=== PATIENT | male | born 1975 | race Caucasian/White ===

== ENCOUNTER 2020-08-03 01:46 | Emergency (ER) | payer SELFPAY ==
[~2020-08-03] VITALS: Ht 182.9 cm; Wt 215.5 kg
[2020-08-03 01:52] VITALS: BP 194/85
--- NOTE | 2020-08-03 02:14 | NUR ---
PT STATES THAT HE WAS DX WITH HYPERTENSION X8 YEARS AGO AND HAD A DISAGREEMENT WITH [facility] AND NEVER FOLLOWED UP FOR TREATMENT OR STARTED ANTI HYPERTENSIVE MEDS. PT REPORTS BEING DX WITH INSULIN DEPENDENT DIABETES X3 YEARS AGO AND NEVER FOLLOWED UP AND NEVER STARTED TAKING INSULIN DUE TO ANOTHER DISAGREEMENT WITH [facility].
[2020-08-03 02:17] LABS: HEMATOCRIT 46 % (40-54); MEAN CORPUSCULAR HEMOGLOBIN 27 PG (25-34); MEAN CORPUSCULAR HGB CONC 35 G/DL (32-36); MEAN CORPUSCULAR VOLUME 77 FL (80-99); WHITE BLOOD COUNT 10.6 10^3/uL (4.3-11.0)
[2020-08-03 02:18] LABS: BASOPHILS # (AUTO) 0.1 10^3/uL (0.0-0.1); BASOPHILS % (AUTO) 1 % (0-10); EOSINOPHILS # (AUTO) 0.2 10^3/uL (0.0-0.3); EOSINOPHILS % (AUTO) 2 % (0-10); LYMPHOCYTES # (AUTO) 2.5 X 10^3 (1.0-4.0); LYMPHOCYTES % (AUTO) 23 % (12-44); MEAN PLATELET VOLUME 11.4 FL (7.4-10.4); MONOCYTES # (AUTO) 0.8 X 10^3 (0.0-1.0); MONOCYTES % (AUTO) 7 % (0-12); NEUTROPHILS % (AUTO) 66 % (42-75); PLATELET COUNT 257 10^3/uL (130-400)
[2020-08-03 02:35] LABS: BUN/CREATININE RATIO 20; CARBON DIOXIDE 24 MMOL/L (21-32); CHLORIDE 93 MMOL/L (98-107); CREATININE SERUM 0.51 MG/DL (0.60-1.30); GFR ESTIMATED > 60; SODIUM 130 MMOL/L (135-145)
[2020-08-03 02:36] LABS: ALKALINE PHOSPHATASE 185 U/L (40-136); BILIRUBIN,TOTAL 0.3 MG/DL (0.1-1.0); CALCIUM 10.3 MG/DL (8.5-10.1); GLUCOSE 442 MG/DL (70-105)
[2020-08-03 02:37] LABS: ALANINE AMINOTRANSFERASE 46 U/L (0-55); ALBUMIN 4.1 GM/DL (3.2-4.5); TOTAL PROTEIN 7.3 GM/DL (6.4-8.2)
[2020-08-03] MEDS ORDERED: cloNIDine 0.2 MG (CATAPRES) TAB ONE (02:47)
--- NOTE | 2020-08-03 02:47 | NUR ---
PT ADVISED IT WOULD BE BEST IF HE DID NOT LEAVE AND WAS TRANSPORTED VIA EMS TO [facility]. PT STATES THAT HE DOES NOT HAVE INSURANCE AND THAT HE CANNOT AFFORD TO PAY FOR THE EMS TRANSPORT BILL. PT INFORMED THAT THE RISK OF LEAVING COULD RESULT IN AND PT STATES AN UNDERSTANDING AND THAT HE WILL SIGN AN AMA FORM STATING SUCH.
--- NOTE | 2020-08-03 02:55 | ED General ---
General Chief Complaint: Chest Pain Stated Complaint: CHEST PAIN Nursing Triage Note: PT AMBULATE TO ROOM FS06 WITH C/O CHEST PAIN, PAIN BETWEEN SHOULDERS, AND LEFT ARM NUMBNESS STARTING AT 2030 YESTERDAY. PT REPORTS TAKING X4 BABY ASA AT 2230 Nursing Sepsis Screen: No Definite Risk History of Present Illness Date Seen by Provider: Aug 03, 2020 Time Seen by Provider: 02:00 Initial Comments Patient is a 45-year-old male with history of uncontrolled/untreated insulin- dependent diabetes and hypertension he presents with intermittent chest pain 2 weeks. Patient describes left-sided chest pain radiating between shoulder blades awaking him from sleep proximally 6 hours ago. Pain is continuous described as dull and moderate severity. It is worse with exertion and is not fully relieved with rest. Patient denies nausea vomiting sweats, abdominal pain. Denies leg pain swelling. No history of CAD. Patient is noncompliant with all medications and does not routinely participate in medical care. Timing/Duration: 4-6 Hours Severity: Moderate Modifying Factors: improves with Other Associated Systoms: Other Allergies and Home Medications Allergies Coded Allergies: No Known Allergies (Verified Allergy, Unknown, 08/03/20) Patient Home Medication List Home Medication List Reviewed: Yes Review of Systems Review of Systems Constitutional: see HPI EENTM: see HPI Respiratory: see HPI Cardiovascular: see HPI Gastrointestinal: see HPI Genitourinary: see HPI Musculoskeletal: see HPI Psychiatric/Neurological: See HPI Hematologic/Lymphatic: See HPI Immunological/Allergic: see HPI All Other Systems Reviewed Negative Unless Noted: Yes Past Viwetfg-Jecozf-Heemev Hx Past Med/Social Hx: Reviewed Nursing Past Med/Soc Hx Patient Social History Alcohol Use: Occasionally Uses Recreational Drug Use: No Smoking Status: Never a Smoker Type Used: Smokeless Tobacco 2nd Hand Smoke Exposure: No Recent Foreign Travel: No Contact w/Someone Who Travel: No Recent Infectious Disease Expo: No Recent Hopitalizations: No Physical Abuse: No Sexual Abuse: No Mistreated: No Fear: No Seasonal Allergies Seasonal Allergies: No Past Medical History Surgeries: Yes (L KNEE, ) Orthopedic Respiratory: No Cardiac: Yes Hypertension Neurological: No Genitourinary: No Gastrointestinal: No Musculoskeletal: Yes Arthritis, Gout Endocrine: Yes (PT STATES HAS NOT TAKEN INSULIN IN X3 YEARS) Diabetes, Insulin dep HEENT: No Cancer: No Psychosocial: No Integumentary: No Blood Disorders: No Physical Exam Vital Signs Vital Signs - First Documented 12/28/20 01:52 Temp 37.2 Pulse 75 Resp 17 B/P (MAP) 194/85 (121) O2 Delivery Room Air Capillary Refill : Less Than 3 Seconds Height, Weight, BMI Height: '" Weight: lbs. oz. kg; 64.00 BMI Method: General Appearance: Anxious Eyes: Bilateral Eye Normal Inspection, Bilateral Eye PERRL, Bilateral Eye EOMI HEENT: PERRL/EOMI, Normal ENT Inspection, Pharynx Normal Neck: Full Range of Motion, Non Tender, Supple Respiratory: Lungs Clear Cardiovascular: Regular Rate, Rhythm, No Edema Gastrointestinal: Non Tender, Soft Back: Normal Inspection, No CVA Tenderness Extremity: Non Tender, No Calf Tenderness Neurologic/Psychiatric: Alert, Oriented x3 Focused Exam Sepsis Stage: Ruled Out Progress/Results/Core Measures Suspected Sepsis Recent Fever Within 48 Hours: No Infection Criteria Present: None New/Unexplained Altered Menta: No Sepsis Screen: No Definite Risk SIRS Temperature: Pulse: 75 Respiratory Rate: 17 Laboratory Tests 08/03/20 02:00: White Blood Count 10.6 Blood Pressure 194 /85 Mean: 121 Laboratory Tests 08/03/20 02:00: Creatinine 0.51L, Platelet Count 257, Total Bilirubin 0.3 Results/Orders Lab Results Laboratory Tests Test 08/03/20 02:00 Range/Units White Blood Count 10.6 4.3-11.0 10^3/uL Red Blood Count 6.00 H 4.35-5.85 10^6/uL Hemoglobin 16.0 13.3-17.7 G/DL Hematocrit 46 40-54 % Mean Corpuscular Volume 77 L 80-99 FL Mean Corpuscular Hemoglobin 27 25-34 PG Mean Corpuscular Hemoglobin Concent 35 32-36 G/DL Red Cell Distribution Width 12.3 10.0-14.5 % Platelet Count 257 130-400 10^3/uL Mean Platelet Volume 11.4 H 7.4-10.4 FL Immature Granulocyte % (Auto) 1 % Neutrophils (%) (Auto) 66 42-75 % Lymphocytes (%) (Auto) 23 12-44 % Monocytes (%) (Auto) 7 0-12 % Eosinophils (%) (Auto) 2 0-10 % Basophils (%) (Auto) 1 0-10 % Neutrophils # (Auto) 7.0 1.8-7.8 X 10^3 Lymphocytes # (Auto) 2.5 1.0-4.0 X 10^3 Monocytes # (Auto) 0.8 0.0-1.0 X 10^3 Eosinophils # (Auto) 0.2 0.0-0.3 10^3/uL Basophils # (Auto) 0.1 0.0-0.1 10^3/uL Immature Granulocyte # (Auto) 0.1 0.0-0.1 10^3/uL Sodium Level 130 L 135-145 MMOL/L Potassium Level 4.0 3.6-5.0 MMOL/L Chloride Level 93 L 98-107 MMOL/L Carbon Dioxide Level 24 21-32 MMOL/L Anion Gap 13 5-14 MMOL/L Blood Urea Nitrogen 10 7-18 MG/DL Creatinine 0.51 L 0.60-1.30 MG/DL Estimat Glomerular Filtration Rate > 60 BUN/Creatinine Ratio 20 Glucose Level 442 *H 70-105 MG/DL Calcium Level 10.3 H 8.5-10.1 MG/DL Corrected Calcium 10.2 H 8.5-10.1 MG/DL Total Bilirubin 0.3 0.1-1.0 MG/DL Aspartate Amino Transf (AST/SGOT) 51 H 5-34 U/L Alanine Aminotransferase (ALT/SGPT) 46 0-55 U/L Alkaline Phosphatase 185 H 40-136 U/L Troponin I 1.71 *H <0.30 NG/ML Total Protein 7.3 6.4-8.2 GM/DL Albumin 4.1 3.2-4.5 GM/DL My Orders Orders - CRISTA MORENO DO Cbc With Automated Diff (08/03/20 02:03) Comprehensive Metabolic Panel (08/03/20 02:03) Troponin I Fs (08/03/20 02:03) Chest 1 View Ap/Pa Only (08/03/20 02:03) Clonidine Tablet (Catapres Tablet) (08/03/20 03:00) Vital Signs/I&O 08/03/20 08/03/20 01:52 02:00 Temp 37.2 Pulse 75 Resp 17 B/P (MAP) 194/85 (121) O2 Delivery Room Air Room Air Capillary Refill : Less Than 3 Seconds Blood Pressure Mean: 121 Departure Communication (Admissions) EKG: Normal sinus rhythm, rate 79, possible elevation in leads V1 through V2 and lead 3, old Q waves present and inferior and anterior leads. Patient's blood pressure elevated, troponin positive. Presentation consistent with acute coronary syndrome. Transfer to clear the nearest facility with cardiology/Un[employer] Apprentice capability recommended. Patient declines transportation and prefers to drive despite being told he is having heart attack with ongoing chest pain as a risk of and disability. Patient states he does not wish to be billed for an ambulance ride. Blood pressure treated. Aspirin taken prior to ED arrival. Patient discharged from the ED AGAINST MEDICAL ADVICE per his request. Duty care physician notified had [facility] of patient's potential arrival. Impression Primary Impression: Acute myocardial infarction Disposition: AGAINST MEDICAL ADVICE Condition: Critical Departure-Patient Inst. Referrals: NO,LOCAL PHYSICIAN (PCP/Family) Primary Care Physician Add. Discharge Instructions: Call 911 and requests transfer to closest ER facility with cardiology coverage. All discharge instructions reviewed with patient and/or family. Voiced understanding. CRISTA MORENO DO Aug 03, 2020 02:55
[2020-08-03] MEDS ORDERED: cloNIDine 0.1 MG (CATAPRES) TAB PO ONE (03:00)
--- NOTE | 2020-08-03 05:07 | Diagnostic Imaging Report ---
INDICATION: Chest pain. FINDINGS: The heart size, mediastinal configuration, and pulmonary vascularity are within normal limits. There is no pleural effusion, pneumothorax, or pneumonia. The osseous structures are unremarkable. IMPRESSION: No acute cardiopulmonary abnormality. Dictated by: Dictated on workstation # [id number]
[2020-08-03] MEDS ORDERED: ACET325T38 PO (14:19)
[2020-08-04] MEDS ORDERED: ASPI-1238 PO (08:49)
[2020-08-04] MEDS ORDERED: CLOP75TA28 PO (08:49)
[2020-08-04] MEDS ORDERED: INSU100I44 SQ (08:49)
[2020-08-04] MEDS ORDERED: METF-397 PO (08:49)
[2020-08-04] MEDS ORDERED: METO50TA7 PO (08:49)
[2020-08-04] MEDS ORDERED: GLIP5TAB13 PO (08:49)
[2020-08-04] MEDS ORDERED: ATOR40TA PO (08:49)
== END 2020-08-03 02:47 | disposition left against medical advice (07) ==
LOC: EDUNIT# 01:46 → ER FS 01:51
DX: I21.9 Acute myocardial infarction, unspecified (principal); F41.9 Anxiety disorder, unspecified
CPT/HCPCS: 36415; 71045; 80053; 84484; 85025

== ENCOUNTER 2020-08-03 03:47 | Inpatient (IN) | payer SELFPAY ==
[~2020-08-03] VITALS: Ht 182.8 cm; Wt 180.3 kg
[2020-08-03] MEDS ORDERED: NITROGLYCERIN 0.4 MG SL TABS BTL 25'S SL ONE (04:00)
[2020-08-03] MEDS ORDERED: ASPIRIN 81 MG CHEW (CHILDREN'S ASA) ONE (04:00)
--- NOTE | 2020-08-03 04:09 | ED Chest Pain ---
General Chief Complaint: Chest Pain Stated Complaint: L ARM NUMBNESS, FACE NUMBLESSES, CHEST PAIN Source: patient Exam Limitations: no limitations History of Present Illness Date Seen by Provider: Aug 03, 2020 Time Seen by Provider: 04:00 Initial Comments Patient is a 45-year-old male who presents to the emergency department today wit h a chief complaint of substernal chest pain, "like an elephant on my chest" radiating between his shoulder blades into his left arm and up into his left jaw onset around 830 or 9 PM this evening. Patient had onset of nausea associated with the symptoms. Denies any diaphoresis or shortness of breath. Patient states he was at rest when the symptoms started. He does state that he has had off-and-on chest pain for the last couple of weeks but he thought it was due to "stress". Patient has a long history of uncontrolled diabetes and hypertension and states he is not seen a doctor in probably 4 years. Patient presented earlier this evening to [facility] [place] was diagnosed with a "NSTEMI" and signed out AMA and drove himself down here because he did not want to pay for an ambulance transfer. Patient continues to complain of pain at this time rating it about a "4" on a scale of 1-10. Patient denies any recent illnesses such as fevers, chills, cough. No GI or symptoms. All other review of systems reviewed and negative except as stated above. Timing/Duration: 4-6 hours Severity/Quality: severe Location: substernal Radiation: jaw, arms, neck, back Activities at Onset: none ASA po SHOULDER PUNCHER: Yes NTG SL SHOULDER PUNCHER: No Allergies and Home Medications Allergies Coded Allergies: No Known Allergies (Verified Allergy, Unknown, 08/03/20) Patient Home Medication List Home Medication List Reviewed: Yes Review of Systems Review of Systems Constitutional: see HPI EENTM: No Symptoms Reported Respiratory: No Symptoms Reported Cardiovascular: Chest Pain Gastrointestinal: Nausea Genitourinary: No Symptoms Reported Musculoskeletal: no symptoms reported Skin: no symptoms reported Past Rpkgmrv-Erimsv-Mjzpuo Hx Patient Social History Type Used: Smokeless Tobacco 2nd Hand Smoke Exposure: No Recent Foreign Travel: No Contact w/Someone Who Travel: No Recent Hopitalizations: No Seasonal Allergies Seasonal Allergies: No Past Medical History Surgeries: Yes (L KNEE, ) Orthopedic Respiratory: No Cardiac: Yes Hypertension Neurological: No Genitourinary: No Gastrointestinal: No Musculoskeletal: Yes Arthritis, Gout Endocrine: Yes (PT STATES HAS NOT TAKEN INSULIN IN X3 YEARS) Diabetes, Insulin dep HEENT: No Cancer: No Psychosocial: No Integumentary: No Blood Disorders: No Physical Exam Vital Signs Vital Signs - First Documented 08/03/20 03:50 Temp 36.0 Pulse 82 Resp 18 B/P (MAP) 194/118 (143) O2 Delivery Room Air Capillary Refill : Less Than 3 Seconds Height, Weight, BMI Height: '" Weight: lbs. oz. kg; 64.00 BMI Method: General Appearance: No Apparent Distress, WD/WN, Obese HEENT: PERRL/EOMI Neck: Full Range of Motion Respiratory: Lungs Clear, Normal Breath Sounds, No Accessory Muscle Use, No Respiratory Distress Cardiovascular: Regular Rate, Rhythm Gastrointestinal: Normal Bowel Sounds, Non Tender, Soft, Other (Morbid obesity) Extremity: Normal Capillary Refill, Normal Range of Motion, No Pedal Edema Neurologic/Psychiatric: Alert, Oriented x3, No Motor/Sensory Deficits, Normal Mood/Affect Skin: Normal Color, Warm/Dry Progress/Results/Core Measures Results/Orders Lab Results Laboratory Tests Test 08/03/20 03:55 Range/Units White Blood Count 9.9 4.3-11.0 10^3/uL Red Blood Count 6.43 H 4.30-5.52 10^6/uL Hemoglobin 17.1 13.3-17.7 g/dL Hematocrit 50 40-54 % Mean Corpuscular Volume 78 L 80-99 fL Mean Corpuscular Hemoglobin 27 25-34 pg Mean Corpuscular Hemoglobin Concent 34 32-36 g/dL Red Cell Distribution Width 12.2 10.0-14.5 % Platelet Count 195 130-400 10^3/uL Mean Platelet Volume 11.9 9.0-12.2 fL Immature Granulocyte % (Auto) 0 % Neutrophils (%) (Auto) 68 42-75 % Lymphocytes (%) (Auto) 23 12-44 % Monocytes (%) (Auto) 7 0-12 % Eosinophils (%) (Auto) 1 0-10 % Basophils (%) (Auto) 1 0-10 % Neutrophils # (Auto) 6.7 1.8-7.8 10^3/uL Lymphocytes # (Auto) 2.3 1.0-4.0 10^3/uL Monocytes # (Auto) 0.7 0.0-1.0 10^3/uL Eosinophils # (Auto) 0.1 0.0-0.3 10^3/uL Basophils # (Auto) 0.1 0.0-0.1 10^3/uL Immature Granulocyte # (Auto) 0.0 0.0-0.1 10^3/uL Sodium Level 133 L 135-145 MMOL/L Potassium Level 4.1 3.6-5.0 MMOL/L Chloride Level 96 L 98-107 MMOL/L Carbon Dioxide Level 23 21-32 MMOL/L Anion Gap 14 5-14 MMOL/L Blood Urea Nitrogen 10 7-18 MG/DL Creatinine 0.91 0.60-1.30 MG/DL Estimat Glomerular Filtration Rate > 60 BUN/Creatinine Ratio 11 Glucose Level 423 *H 70-105 MG/DL Calcium Level 10.5 H 8.5-10.1 MG/DL Total Creatine Kinase 597 H 30-200 U/L Creatine Kinase MB 33.8 *H <6.6 NG/ML Troponin I 2.113 *H <0.028 NG/ML My Orders Orders - YOUNG ANGUIANO MD Nitroglycerin 0.4 Mg Btl 25's (Nitrostat (08/03/20 04:00) Aspirin Chewable Tablet (Baby Aspirin Ch (08/03/20 04:00) Ed Iv/Invasive Line Start (08/03/20 04:09) Cbc With Automated Diff (08/03/20 04:09) Basic Metabolic Panel (08/03/20 04:09) Creatine Kinase (08/03/20 04:09) Creatine Kinase Mb (08/03/20 04:09) Troponin I (08/03/20 04:09) Ekg Tracing (08/03/20 04:09) Aspirin Chewable Tablet (Baby Aspirin Ch (08/03/20 09:00) Nitroglycerin 0.4 Mg Btl 25's (Nitrostat (08/03/20 04:15) Insulin (Regular) Human (Novolin R (Per (08/03/20 04:15) Clopidogrel Tablet (Plavix Tablet) (08/03/20 05:00) Metoprolol Succinate (Xl) Tab (Toprol Xl (08/03/20 05:00) Fentanyl Injection (Sublimaze Injection (08/03/20 05:00) Medications Given in ED Current Medications Medications Dose Ordered Sig/Hyun Route Start Time Stop Time Status Last Admin Dose Admin Aspirin 81 mg STK-MED ONCE .ROUTE 08/03/20 04:00 08/03/20 04:04 DC 08/03/20 04:05 324 MG Insulin Human Regular 10 unit ONCE ONCE SC 08/03/20 04:15 08/03/20 04:16 DC 08/03/20 04:20 10 UNIT Nitroglycerin 0.4 mg NEEDED PRN SL 08/03/20 04:15 08/03/20 04:20 0.4 MG Nitroglycerin 0.4 mg STK-MED ONCE SL 08/03/20 04:00 08/03/20 04:04 DC 08/03/20 04:05 0.4 MG Vital Signs/I&O 08/03/20 08/03/20 03:50 03:50 Temp 36.0 Pulse 82 Resp 18 B/P (MAP) 194/118 (143) O2 Delivery Room Air Room Air Progress Progress Note : Time: 04:13 Progress Note 45-year-old male presents to the emergency room with an NSTEMI. Patient has a long history of uncontrolled diabetes and hypertension. Previously seen this e vening with a troponin of 1.71. Blood sugar greater than 400. Patient is treated here in the emergency department this evening with 324 mg of aspirin as well as sublingual nitroglycerin. Patient is also given 10 units of regular insulin subcu for control of his blood sugar. Patient will be admitted to the hospitalist service with an NSTEMI with cardiology consult. [id number] Whitley, recommends Plavix 300 mg, metoprolol XL 50 mg will admit to the ICU Also discussed with Dr. Valdez for admission Initial ECG Impression Date: Aug 03, 2020 Initial ECG Impression Time: 03:51 Initial ECG Rate: 72 Initial ECG Rhythm: Normal Sinus Initial ECG Intervals: Normal Initial ECG Impression: Nonspecific Changes Comment Poor R wave progression over the precordium, nonspecific ST-T wave changes inferiorly Departure Communication (Admissions) Time/Spoke to Admitting Phy: 04:[address] Valdez accepts the patient for admission to the ICU Time/Spoke to Consulting Phy: 04:48 Discussed with ; Plavix load and metoprolol Impression Primary Impression: NSTEMI (non-ST elevated myocardial infarction) Additional Impression: Hyperglycemia due to diabetes mellitus Disposition: ADMITTED INPATIENT Condition: Stable Admissions Decision to Admit Reason: Admit from ER (General) Decision to Admit/Date: Aug 03, 2020 Time/Decision to Admit Time: 04:59 Departure-Patient Inst. Referrals: NO,LOCAL PHYSICIAN (PCP/Family) Primary Care Physician YOUNG ANGUIANO MD Aug 03, 2020 04:09
[2020-08-03] MEDS ORDERED: inSUlin (REGULAR) HUMAN 1 UNIT/0.01 ML (CHARGE PER UNIT) SC ONE (04:15)
[2020-08-03] MEDS ORDERED: NITROGLYCERIN 0.4 MG SL TABS BTL 25'S SL PRN (04:15)
[2020-08-03 04:16] LABS: BASOPHILS # (AUTO) 0.1 10^3/uL (0.0-0.1); BASOPHILS % (AUTO) 1 % (0-10); EOSINOPHILS # (AUTO) 0.1 10^3/uL (0.0-0.3); EOSINOPHILS % (AUTO) 1 % (0-10); HEMATOCRIT 50 % (40-54); HEMOGLOBIN 17.1 g/dL (13.3-17.7); LYMPHOCYTES # (AUTO) 2.3 10^3/uL (1.0-4.0); LYMPHOCYTES % (AUTO) 23 % (12-44); MEAN CORPUSCULAR HEMOGLOBIN 27 pg (25-34); MEAN CORPUSCULAR HGB CONC 34 g/dL (32-36); MEAN CORPUSCULAR VOLUME 78 fL (80-99); MEAN PLATELET VOLUME 11.9 fL (9.0-12.2); MONOCYTES # (AUTO) 0.7 10^3/uL (0.0-1.0); MONOCYTES % (AUTO) 7 % (0-12); NEUTROPHILS # (AUTO) 6.7 10^3/uL (1.8-7.8); NEUTROPHILS % (AUTO) 68 % (42-75); PLATELET COUNT 195 10^3/uL (130-400); WHITE BLOOD COUNT 9.9 10^3/uL (4.3-11.0)
--- NOTE | 2020-08-03 04:20 | NUR ---
SERUM GLUCOSE 442 MG/DL AT 0200 FROM LABS DRAWN AT [facility] ER, NO TX GIVEN. 10 UNITS REGULAR INSULIN GIVEN SQ PER DR. ANGUIANO ORDERS AT THIS TIME.
--- NOTE | 2020-08-03 04:25 | NUR ---
0420- 2ND SL NITRO GIVEN. 042- BP 122/70, NO DECREASE TO LEFT SIDED CHEST PAIN. RELIEF IN UPPER BACK PAIN, FEELING RETURNING TO LEFT JAW, LEFT ARM REMAINS "NUMB". DR. ANGUIANO NOTIFIED AND VERBAL ORDERS TO HOLD 3RD DOSE SL NITRO AT THIS TIME R/T DECREASE IN BP.
[2020-08-03 04:30] LABS: BUN/CREATININE RATIO 11; CALCIUM 10.5 MG/DL (8.5-10.1); CARBON DIOXIDE 23 MMOL/L (21-32); CHLORIDE 96 MMOL/L (98-107); CREATINE KINASE 597 U/L (30-200); CREATININE SERUM 0.91 MG/DL (0.60-1.30); GFR ESTIMATED > 60; POTASSIUM 4.1 MMOL/L (3.6-5.0); SODIUM 133 MMOL/L (135-145)
[2020-08-03 04:33] LABS: GLUCOSE 423 MG/DL (70-105)
[2020-08-03 04:42] LABS: CREATINE KINASE MB 33.8 NG/ML (<6.6)
[2020-08-03] MEDS ORDERED: CLOPIDOGREL 300 MG (PLAVIX) TABLET PO ONE ×2 (05:00→07:32)
[2020-08-03] MEDS ORDERED: fentaNYL INJECTION 100 MCG/2 ML AMP IVP ONE (05:00)
[2020-08-03] MEDS ORDERED: meTOproloL SUCCINATE 50 MG (TOPROL XL) TAB PO SCH (05:00)
--- NOTE | 2020-08-03 05:00 | NUR ---
DR. ANGUIANO AND PT NOTIFIED OF HOLD IN ER UNTIL AFTER 0700 SHIFT CHANGE. PT VERBALIZED UNDERSTANDING AND NO QUESTIONS OR CONCERNS AT THIS TIME.
--- NOTE | 2020-08-03 05:00 | NUR ---
COMIC BOOK DESIGNER NOTIFIED OF DR. MCCLURE'S REQUEST FOR PT TO BE IN ICU. ROOM NUMBER GIVEN, BUT PER MARILEE, COMIC BOOK DESIGNER PT WILL NEED TO REMAIN IN ER UNTIL AFTER SHIFT CHANGE R/T STAFFING/PT ACUITY.
--- NOTE | 2020-08-03 05:05 | NUR ---
RATES CHEST PAIN 2 ON 0-[address] ANGUIANO NOTIFIED[address] VERBAL ORDERS TO HOLD IV FENTANYL AT THIS TIME.
--- NOTE | 2020-08-03 05:58 | NUR ---
PT STATES PAIN STARTING TO RETURN TO MID BACK, RATES PAIN 3 ON 0-[address] ANGUIANO NOTIFIED WHO VERBAL ORDERS TO GIVE FENTANYL 50MCG IV THAT WAS PREVIOUSLY ON HOLD.
[2020-08-03] MEDS ORDERED: NS IV 1000 ML 1,000 ML ONE (06:15)
[2020-08-03] MEDS ORDERED: MIDAZOLAM 5 MG/5 ML (VERSED) VIAL ONE (06:15)
[2020-08-03] MEDS ORDERED: LIDOCAINE 1% INJ 20 ML 20 ML VIAL ONE (06:15)
[2020-08-03] MEDS ORDERED: fentaNYL INJECTION 100 MCG/2 ML AMP ONE ×2 (06:15→09:45)
[2020-08-03] MEDS ORDERED: HEParin (CATH LAB) 2,000 ML IV ONE (06:15)
[2020-08-03] MEDS ORDERED: NITRO DRIP 25000 MCG/D5W 250 ML IV ONE (06:15)
[2020-08-03] MEDS ORDERED: HEParin 1000 UNIT/ML (10ML VIAL) FOR BOLUS ONE (06:15)
[2020-08-03 06:39] VITALS: BP 138/89
--- NOTE | 2020-08-03 06:52 | Consultation-Cardiology ---
HPI-Cardiology Cardiology Consultation: Date of Consultation 08/03/20 Time Seen by a Provider: 06:40 Date of Admission Attending Physician Thalia Whitley MD [facility] Admitting Physician Carmelita,Local Physician Consulting Physician THALIA WHITLEY MD, FACP, [facility] HPI: Chief Complaint: CC: Chest discomfort HPI 45 yo man with multiple cor risk factors who presents with several hours of waxing and waning mid-chest discomfort, varying from mild to moderately severe, pressure like, radiating to L shoulder, associated with some shortness of breath, improved with s/l NTG in ER, never felt before. Chronic, slowly progressive, exertional shortness of breath. No palp or syncope. No swelling Review of Systems-Cardiology Review of Systems Constitutional: malaise, tiredness; No weight loss, No weight gain Eyes: No vision change Ears/Nose/Throat: No ear discharge, No nasal drainage, No recent hearing loss Respiratory: As described under HPI Cardiovascular: As described under HPI Gastrointestinal: No diarrhea, No nausea, No vomiting Genitourinary: No dysuria, No hematuria Musculoskeletal: No back pain, No joint pain Skin: No rash, No ulcerations Psychiatric/Neurological: No seizure, No focal weakness, No syncope Hematologic: No bleeding abnormalities ZSB-Wzgtab-Fnwgvf Hx Patient Social History Alcohol Use: Occasionally Uses Recreational Drug Use: No Type Used: Smokeless Tobacco 2nd Hand Smoke Exposure: No Recent Foreign Travel: No Recent Infectious Disease Expo: No Hospitalization with Isolation: Denies Past Medical History PMH As described under Assessment. Family Medical History Family Medical History: Report fam h/o early CAD Allergies and Home Medications Allergies Coded Allergies: No Known Allergies (Verified Allergy, Unknown, 08/03/20) Patient Home Medication List Home Medication List Reviewed: Yes Physical Exam-Cardiology Physical Exam Vital Signs/I&O 08/03/20 08/03/20 08/03/20 03:50 03:50 06:39 Temp 36.0 36.0 Pulse 82 92 Resp 18 18 B/P (MAP) 194/118 (143) 138/89 (143) Pulse Ox 98 O2 Delivery Room Air Room Air Room Air Capillary Refill : Less Than 3 Seconds Constitutional: AAO x 3, well-developed, well-nourished HEENT: EOMI, hearing is well preserved; No xanthelasmas are seen Neck: carotid pulses are 2 + bilaterally Respiratory: No accessory muscle use; other (good bilat air entry) Cardiovascular: regular rate-rhythm, S1 and S2, systolic murmur (soft DORIAN at card base) Gastrointestinal: No tender; soft; No guarding, No rebound; audible bowel sounds Extremities: No clubbing, No cyanosis, No significant edema Neurologic/Psychiatric: oriented x 3, other (moves all limbs equally) Skin: No rash on exposed areas, No ulcerations on exposed areas Data Review Labs Laboratory Tests 08/03/20 03:55: White Blood Count 9.9, Red Blood Count 6.43H, Hemoglobin 17.1, Hematocrit 50, Mean Corpuscular Volume 78L, Mean Corpuscular Hemoglobin 27, Mean Corpuscular Hemoglobin Concent 34, Red Cell Distribution Width 12.2, Platelet Count 195, Mean Platelet Volume 11.9, Immature Granulocyte % (Auto) 0, Neutrophils (%) (Auto) 68, Lymphocytes (%) (Auto) 23, Monocytes (%) (Auto) 7, Eosinophils (%) (Auto) 1, Basophils (%) (Auto) 1, Neutrophils # (Auto) 6.7, Lymphocytes # (Auto) 2.3, Monocytes # (Auto) 0.7, Eosinophils # (Auto) 0.1, Basophils # (Auto) 0.1, Immature Granulocyte # (Auto) 0.0, Sodium Level 133L, Potassium Level 4.1, Chloride Level 96L, Carbon Dioxide Level 23, Anion Gap 14, Blood Urea Nitrogen 10, Creatinine 0.91, Estimat Glomerular Filtration Rate > 60, BUN/Creatinine Ratio 11, Glucose Level 423*H, Calcium Level 10.5H, Total Creatine Kinase 597H, Creatine Kinase MB 33.8*H, Troponin I 2.113*H A/P-Cardiology Assessment/Admission Diagnosis Ac NSTEMI Uncontrolled DM II Hypertension H/o hyperlipidemia Chews tobacco Obesity with BMI approx 55 Discussion and Recomendations * Urgent cath due to continuing symptoms * I discussed the rationale, procedure, risks, benefits, potential complications, and alternatives of card cath and possible PCI with him in detail. He understands and provides informed consent * Has been treated with DAPT and BB * Advised to quit tobacco use * Further recs based on cath and hosp course * Hospitalist svce managing DM II Clinical Quality Measures AMI/AHF: ASA po Prior to arrival: Yes THALIA WHITLEY MD FACP FACC CCDS Aug 03, 2020 06:52
[2020-08-03] MEDS ORDERED: EPTIFIBATIDE BOLUS 30 ML IV ONE (07:05)
[2020-08-03] MEDS ORDERED: PATIENT MAY USE OWN MEDS, ALL PO SCH (07:45)
[2020-08-03] MEDS ORDERED: ASPIRIN 81 MG CHEW (CHILDREN'S ASA) PO SCH ×2 (09:00)
--- NOTE | 2020-08-03 09:27 | History & Physical-Hospitalist ---
History of Present Illness HPI/Chief Complaint Pt is a 45yoCM with a PMH of IDDMII who presented to the ER due to substernal chest pain that started last night that he described as like "an elephant sitting on his chest. They started at rest and has had similar symptoms from the past couple of weeks that self resolved. The pain was between his shoulder blades and radiated to his left jaw and left arm. He was seen in the ED and admission was recommended but he signed out AMA in order to transport privately and presented to the ER here. His pain persisted and Dr Whitley took him to the labor relations representative this morning where intervention was done. He reports feeling well now with resolution of symptoms. He is a known diabetic but has not taken any medication for roughly 4 years. He does not have a PCP. He previously was on insulin, metformin, and glipizide. Source: patient Date Seen 08/03/20 Time Seen by a Provider: 09:17 Attending Physician Thalia Whitley MD Facp Facc Ccds PCP No,Local Physician Referring Physician Date of Admission Aug 03, 2020 at 05:06 Home Medications & Allergies Home Medications Reviewed patient Home Medication Reconciliation performed by pharmacy medication reconciliations tissue technician and/or nursing. Patients Allergies have been reviewed. Allergies Allergies Coded Allergies No Known Allergies (Verified Allergy, Unknown, 08/03/20) Past Gjefmws-Trchya-Glijbz Hx Past Med/Social Hx: Reviewed Nursing Past Med/Soc Hx Patient Social History Employed/Student: employed Alcohol Use: Occasionally Uses Recreational Drug Use: No Type Used: Smokeless Tobacco 2nd Hand Smoke Exposure: No Recent Foreign Travel: No Contact w/other who traveled: No Recent Hopitalizations: No Recent Infectious Disease Expo: No Seasonal Allergies Seasonal Allergies: No Past Medical History Surgeries: Orthopedic Cardiac: Hypertension Musculoskeletal: Arthritis, Gout Endocrine: Diabetes, Insulin dep History of Blood Disorders: No Family History Reviewed Nursing Family Hx Brother- MoyaMoya Review of Systems Constitutional: No chills, No fever EENTM: no symptoms reported Respiratory: No cough Cardiovascular: see HPI, chest pain; No edema, No Hx of Intervention, No palpitations Gastrointestinal: no symptoms reported Genitourinary: no symptoms reported Musculoskeletal: no symptoms reported Skin: no symptoms reported Psychiatric/Neurological: No Symptoms Reported Physical Exam Physical Exam Vital Signs Vital Signs - First Documented 08/03/20 08/03/20 03:50 06:39 Temp 36.0 Pulse 82 Resp 18 B/P (MAP) 194/118 (143) Pulse Ox 98 O2 Delivery Room Air Capillary Refill : Less Than 3 Seconds Height, Weight, BMI Height: '" Weight: lbs. oz. kg; 54.00 BMI Method: General Appearance: No Apparent Distress, WD/WN, Obese HEENT: PERRL/EOMI, Moist Mucous Membranes Neck: Normal Inspection, Supple Respiratory: Lungs Clear, No Accessory Muscle Use, No Respiratory Distress Cardiovascular: Regular Rate, Rhythm, No JVD, No Murmur Gastrointestinal: Normal Bowel Sounds, Non Tender, Soft Extremity: No Calf Tenderness, No Pedal Edema Neurologic/Psychiatric: Alert, Oriented x3, Normal Mood/Affect Results Results/Procedures Labs Laboratory Tests 08/03/20 03:55 Patient resulted labs reviewed. Imaging: Reviewed Imaging Report [facility] [place], [place] NAME: SKYLER CASTAÑEDA [facility] REC#: [id number] PT STATUS: DEP ER : [id number] PHYSICIAN: CRISTA MORENO DO ADMIT DATE: 08/03/20/ER FS Signed Date of Exam:08/03/20 CHEST 1 VIEW AP/PA ONLY INDICATION: Chest pain. FINDINGS: The heart size, mediastinal configuration, and pulmonary vascularity are within normal limits. There is no pleural effusion, pneumothorax, or pneumonia. The osseous structures are unremarkable. IMPRESSION: No acute cardiopulmonary abnormality. Dictated by: Dictated on workstation # [id number] Dict: 08/03/20 0504 Trans: 08/03/20 0554 [facility] [id number] Interpreted by: LOIS DE LEON MD Electronically signed by: LOIS DE LEON MD 08/03/20 0554 Assessment/Plan Admission Diagnosis NSTEMI Admission Status: Inpatient Order (span 2 midnights) Reason for Inpatient Admission: see below Assessment and Plan NSTEMI Troponin from 1.71 to 2.113 Persistent symptoms- taken to labor relations representative Balloon and stent placed in OM DAPT and statin ordered Cardiology consulted, appreciate recs Echo ordered IDDMII BS 423 on arrival SSI Start Levemir A1c ordered Hold metformin for contrast HTN BP 194/118 on arrival Down to 138/89 now metoprolol started Trend DVT ppx: Lovenox Clinical Quality Measures AMI/AHF: ASA po Prior to arrival: Yes RAAD PÉREZ MD Aug 03, 2020 09:27
[2020-08-03] MEDS ORDERED: morphine INJ 4 MG/ML 1 ML (VIAL/SYRINGE) IVP PRN (09:30)
[2020-08-03] MEDS ORDERED: ONDANSETRON 4 MG/2 ML (SDV) Z0FRAN IVP PRN (09:30)
[2020-08-03] MEDS ORDERED: ATROPINE INJECTION 1 MG/10 ML SYR (ABBOTT) ONE (09:45)
--- NOTE | 2020-08-03 11:06 | Pulmonary Consultation ---
History of Present Illness History of Present Illness Date Seen by Provider: Aug 03, 2020 Time Seen by Provider: 11:04 Date of Admission Allergies and Home Medications Allergies Coded Allergies: No Known Allergies (Verified Allergy, Unknown, 08/03/20) Past Cyjrkld-Xquwrz-Oiuxvc Hx Past Med/Social Hx: Reviewed Nursing Past Med/Soc Hx Patient Social History Alcohol Use: Occasionally Uses Recreational Drug Use: No Type Used: Smokeless Tobacco 2nd Hand Smoke Exposure: No Recent Foreign Travel: No Contact w/Someone Who Travel: No Recent Infectious Disease Expo: No Recent Hopitalizations: No Physical Abuse: No Sexual Abuse: No Mistreated: No Fear: No Seasonal Allergies Seasonal Allergies: No Past Medical History Surgeries: Yes (L KNEE) Orthopedic Respiratory: No Cardiac: Yes Hypertension Neurological: No Genitourinary: No Gastrointestinal: No Musculoskeletal: Yes Arthritis, Gout Endocrine: Yes (PT STATES HAS NOT TAKEN INSULIN IN X3 YEARS) Diabetes, Insulin dep HEENT: No Cancer: No Psychosocial: No Integumentary: No Blood Disorders: No Family Medical History Reviewed Nursing Family Hx Brother- MoyaMoya Review of Systems Time Seen by Provider: 11:06 Sepsis Event Evaluation Height, Weight, BMI Height: '" Weight: lbs. oz. kg; 54.00 BMI Method: Exam Exam Vital Signs Date Time Temp Pulse Resp B/P (MAP) Pulse Ox O2 Delivery O2 Flow Rate FiO2 08/03/20 08:00 81 159/89 (112) 96 Room Air 08/03/20 06:39 36.0 92 18 138/89 (143) 98 Room Air 08/03/20 03:50 36.0 82 18 194/118 (143) Room Air 08/03/20 03:50 Room Air Height & Weight Height: '" Weight: lbs. oz. kg; 54.00 BMI Method: General Appearance: No Apparent Distress, WD/WN, Obese HEENT: PERRL/EOMI, Moist Mucous Membranes Neck: Normal Inspection, Supple Respiratory: Lungs Clear, No Accessory Muscle Use, No Respiratory Distress Cardiovascular: Regular Rate, Rhythm, No JVD, No Murmur Capillary Refill: Less Than 3 Seconds Extremity: No Calf Tenderness, No Pedal Edema Neurologic/Psychiatric: Alert, Oriented x3, Normal Mood/Affect Skin: Normal Color, Warm/Dry Results Lab Laboratory Tests 08/03/20 03:55 Assessment/Plan Assessment/Plan NSTEMI s/p Cath with stent placement. -Cardiology following Cardiology following Echo pending IDDMII -SSI -Start Levemir -Hold metformin for contrast Morbid obesity HTN monitor DVT ppx -Lovenox ALDO BARRETO DO Aug 03, 2020 11:06
--- NOTE | 2020-08-03 11:10 | CARDIAC CATHETERIZATION ---
DATE OF SERVICE: 08/03/2020 CARDIAC CATHETERIZATION AND CORONARY INTERVENTION REPORT INDICATION FOR PROCEDURE: The patient is a 45-year-old man with multiple coronary artery disease risk factors, who presented with acute non-ST elevation myocardial infarction. Due to continuing symptoms, urgent cardiac catheterization was carried out after having obtained an informed consent for cardiac catheterization and possible ad hoc coronary intervention. DESCRIPTION OF PROCEDURE: He was brought to the cardiac catheterization laboratory. Right groin was prepared and draped in the usual sterile fashion. Lidocaine 1% was used for local anesthesia. Modified Seldinger technique was used to advance a 6-English sheath into the right femoral artery. A 6-English JR4 catheter was used for left coronary angiography. A 6-English JR4 catheter was used for right coronary angiography. A 6-English pigtail catheter was used for left heart catheterization and left ventricular angiography. PERCUTANEOUS INTERVENTION TO THE LEFT CIRCUMFLEX OM: Following completion of the diagnostic procedure, we carried out percutaneous intervention to the first obtuse marginal branch of the left circumflex artery. We used a 6-English JL4 guide catheter to engage the left coronary artery. We gave a double bolus of Integrilin and 8000 units of intravenous heparin. We used a ChoICE floppy wire to cross the lesion in the first obtuse marginal branch. This was a total occlusion. We were able to advance the wire and it appeared to be in the true lumen. We carried out balloon angioplasty with a 2.0 x 20 mm balloon. Multiple balloon inflations were carried out. This restored antegrade flow into the first obtuse marginal branch of the left circumflex artery. We then stented the culprit lesion with Trena Xience 2.25 x 15 mm stent. The stent was deployed at 14 atmospheres. The stent balloon was then collapsed and pulled proximally to cover the proximal two-thirds of the standard segment and the balloon was inflated up to 18 atmospheres. The balloon was then collapsed and removed. The patient received intracoronary nitroglycerin. Subsequent angiography revealed no significant residual stenosis at the previous site of complete occlusion. Flow in the distal vessel has improved from SHAN 0 to SHAN 3. The patient received a total 300 mcg of intracoronary nitroglycerin. He tolerated the procedure well. At the end of the procedure, following removal of the angioplasty equipment, the sheath was sutured in place and the patient was transferred to the floor for manual sheath removal. HEMODYNAMICS: Left ventricular end-diastolic pressure following coronary angiography was 10 mmHg. There was no significant pressure gradient on pullback across the aortic valve. Ascending aortic pressure was 120/79 with a mean of 96 mmHg. CORONARY ANGIOGRAPHY: Left main coronary artery is free of significant disease. Left anterior descending artery has approximately 60% stenosis in its proximal portion and 60% stenosis in its mid portion that also involves the origin of the first diagonal branch. The left circumflex artery had occlusion in the proximal portion of the first obtuse marginal branch, which was successfully intervened on. Following deployment of Trena 2.25 x 15 mm stent, there was no significant residual stenosis in the first obtuse marginal branch. The distal left circumflex artery has up to approximately 50% stenosis. The right coronary artery is dominant. The posterior descending branch of the right coronary artery is occluded in its mid portion. The distal posterior descending artery is collateralized from the left coronary system. LEFT VENTRICULAR ANGIOGRAPHY: Left ventricular angiography was carried out in the GR projection only. The global left ventricular systolic function is normal. Left ventricular ejection fraction is approximately 60%. CONCLUSIONS: 1. Coronary artery disease as detailed above. The culprit lesion causing the patient's non-ST elevation myocardial infarction was a complete occlusion of the proximal portion of the first obtuse marginal. This was successfully treated, and following stenting with Trena Xience 2.25 x 15 mm, there was no significant residual stenosis and there was normal antegrade flow. The left anterior descending has 60% stenosis in its proximal portion and 60% stenosis in the mid portion that involves the origin of the first diagonal. The distal left circumflex has up to 50% stenosis. The right coronary artery is dominant and its posterior descending branch is occluded in its mid to distal portion and there is collateralization of the distal segment of the posterior descending from the left coronary system. 2. Normal global left ventricular systolic function with an ejection fraction of approximately 60%. 3. Normal left ventricular end-diastolic pressure. DISCUSSION AND RECOMMENDATIONS: Dual antiplatelet therapy has been added to the regimen. Beta blockers have been added to the regimen. Statins have been added to the regimen. We have advised him to refrain from smoking cigarettes. His diabetes is uncontrolled and this is being managed by the hospitalist service. Job ID: [id number] DocumentID: [id number] Dictated Date: 08/03/2020 08:16:54 Commissions Specialist Date: 08/03/2020 11:09:56 Dictated By: CHANDNI MCCLURE MD, MA, FACP, FACC, MTDD
[2020-08-03] MEDS: NS IV 1000 ML 1,000 ML IV SCH ×2 (11:44→15:32)
[2020-08-03] MEDS: inSUlin ASPART (NovoLOG) 1 UNIT/0.01 ML (CHARGE PER UNIT) SC SCH ×3 (13:12→21:17)
[2020-08-03] MEDS ORDERED: ACET325T38 PO (14:19)
--- NOTE | 2020-08-03 14:19 | NUR ---
I SPOKE WITH THE PATIENT TO COMPLETE THIS MED REC. TYLENOL PRN IS THE ONLY MEDICATION PT IS CURRENTLY TAKING.
[2020-08-03] MEDS ORDERED: ENOXAPARIN 60 MG/0.6 ML (LOVENOX) SYR SC SCH (20:15)
[2020-08-03] MEDS ORDERED: ENOXAPARIN 40 MG/0.4 ML (LOVENOX) SYR ONE (21:10)
[2020-08-03] MEDS ORDERED: ENOXAPARIN 40 MG/0.4 ML (LOVENOX) SYR SC SCH (21:15)
[2020-08-04 04:09] LABS: BASOPHILS # (AUTO) 0.1 10^3/uL (0.0-0.1); BASOPHILS % (AUTO) 1 % (0-10); EOSINOPHILS # (AUTO) 0.1 10^3/uL (0.0-0.3); EOSINOPHILS % (AUTO) 1 % (0-10); HEMATOCRIT 42 % (40-54); HEMOGLOBIN 14.2 g/dL (13.3-17.7); LYMPHOCYTES # (AUTO) 2.6 10^3/uL (1.0-4.0); LYMPHOCYTES % (AUTO) 26 % (12-44); MEAN CORPUSCULAR HEMOGLOBIN 27 pg (25-34); MEAN CORPUSCULAR HGB CONC 34 g/dL (32-36); MEAN CORPUSCULAR VOLUME 80 fL (80-99); MEAN PLATELET VOLUME 11.5 fL (9.0-12.2); MONOCYTES # (AUTO) 0.8 10^3/uL (0.0-1.0); MONOCYTES % (AUTO) 8 % (0-12); NEUTROPHILS # (AUTO) 6.3 10^3/uL (1.8-7.8); NEUTROPHILS % (AUTO) 64 % (42-75); PLATELET COUNT 251 10^3/uL (130-400); WHITE BLOOD COUNT 9.9 10^3/uL (4.3-11.0)
[2020-08-04 04:33] LABS: BUN/CREATININE RATIO 14; CALCIUM 8.5 MG/DL (8.5-10.1); CARBON DIOXIDE 23 MMOL/L (21-32); CHLORIDE 101 MMOL/L (98-107); CREATININE SERUM 0.73 MG/DL (0.60-1.30); GFR ESTIMATED > 60; GLUCOSE 296 MG/DL (70-105); PHOSPHORUS 3.2 MG/DL (2.3-4.7); POTASSIUM 3.7 MMOL/L (3.6-5.0); SODIUM 133 MMOL/L (135-145)
[2020-08-04] MEDS: inSUlin ASPART (NovoLOG) 1 UNIT/0.01 ML (CHARGE PER UNIT) SC SCH ×2 (05:45→12:13)
--- NOTE | 2020-08-04 05:56 | Pulmonary Progress Note ---
Subjective Time Seen by a Provider: 05:56 Sepsis Event Evaluation Height, Weight, BMI Height: '" Weight: lbs. oz. kg; 54.00 BMI Method: Exam Exam Vital Signs Date Time Temp Pulse Resp B/P (MAP) Pulse Ox O2 Delivery O2 Flow Rate FiO2 08/04/20 04:09 36.0 08/04/20 01:00 76 08/03/20 23:42 36.0 08/03/20 20:00 Room Air 08/03/20 19:45 36.3 08/03/20 19:00 80 08/03/20 18:00 156/97 (116) Room Air 08/03/20 17:00 73 13 138/78 (98) 96 Room Air 08/03/20 16:00 98 16 137/85 (102) 96 Room Air 08/03/20 15:00 90 9 144/89 (107) 89 Room Air 08/03/20 14:00 77 24 165/65 (98) 94 Room Air 08/03/20 13:00 85 18 125/75 (92) 95 Room Air 08/03/20 12:39 123 08/03/20 12:00 75 14 98/86 (90) 97 Room Air 08/03/20 11:00 71 23 115/76 (89) 96 Room Air 08/03/20 10:00 77 7 114/87 (96) 96 Room Air 08/03/20 08:00 Room Air 08/03/20 08:00 81 159/89 (112) 96 Room Air 08/03/20 06:39 36.0 92 18 138/89 (143) 98 Room Air I & O 08/04/20 07:00 Intake Total 3040 ml Output Total 2425 ml Balance 615 ml Height & Weight Height: '" Weight: lbs. oz. kg; 54.00 BMI Method: General Appearance: No Apparent Distress, WD/WN, Obese HEENT: PERRL/EOMI, Moist Mucous Membranes Neck: Normal Inspection, Supple Respiratory: Lungs Clear, No Accessory Muscle Use, No Respiratory Distress Cardiovascular: Regular Rate, Rhythm, No JVD, No Murmur Capillary Refill: Less Than 3 Seconds Extremity: No Calf Tenderness, No Pedal Edema Neurologic/Psychiatric: Alert, Oriented x3, Normal Mood/Affect Skin: Normal Color, Warm/Dry Results Lab Laboratory Tests 08/03/20 03:55 08/04/20 03:50 Assessment/Plan Assessment/Plan NSTEMI s/p Cath with stent placement. -Cardiology following Echo pending IDDMII -SSI - Levemir Morbid obesity HTN monitor DVT ppx -Lovegaylax ALDO BARRETO DO Aug 04, 2020 05:56
[2020-08-04] MEDS: CLOPIDOGREL 75 MG (PLAVIX) TABLET PO SCH ×2 (07:39→13:59)
--- NOTE | 2020-08-04 08:07 | Diagnostic Imaging Report ---
INDICATION: Dyspnea. TECHNIQUE: Single view chest 3:23 AM. CORRELATION STUDY: 08/03/2020 FINDINGS: Heart size enlarged. Vasculature overall within normal limits. The lungs are clear with no consolidating infiltrate. There is no significant effusion or pneumothorax. IMPRESSION: 1. Stable cardiac enlargement without evidence of overt failure. Dictated by: Dictated on workstation # [id number]
[2020-08-04] MEDS ORDERED: ATOR40TA PO (08:49)
[2020-08-04] MEDS ORDERED: METO50TA7 PO (08:49)
[2020-08-04] MEDS ORDERED: ASPI-1238 PO (08:49)
[2020-08-04] MEDS ORDERED: INSU100I44 SQ (08:49)
[2020-08-04] MEDS ORDERED: METF-397 PO (08:49)
[2020-08-04] MEDS ORDERED: GLIP5TAB13 PO (08:49)
[2020-08-04] MEDS ORDERED: CLOP75TA28 PO (08:49)
[2020-08-04] MEDS ORDERED: ASPIRIN E.C. 81 MG (ECOTRIN) TAB PO SCH (09:00)
[2020-08-04] MEDS ORDERED: ENOXAPARIN 60 MG/0.6 ML (LOVENOX) SYR SC SCH (09:00)
[2020-08-04] MEDS ORDERED: meTOproloL SUCCINATE 50 MG (TOPROL XL) TAB PO SCH (09:00)
--- NOTE | 2020-08-04 09:36 | Progress Note - Cardiology ---
Cardiology SOAP Progress Note Subjective: Sitting up in recliner at the bedside. States he feels good No c/o CP, palpitations, syncope, near syncope or LE swelling No c/o groin discomfort Objective: I&O/Vital Signs 08/03/20 08/03/20 08/03/20 08/04/20 22:00 23:00 23:42 00:00 Temp 36.0 Pulse 89 74 78 Resp 23 27 45 B/P (MAP) 151/87 (103) 137/78 (100) 124/65 (87) Pulse Ox 98 97 96 O2 Delivery Room Air Room Air Room Air 08/04/20 08/04/20 08/04/20 08/04/20 01:00 01:00 02:00 03:00 Pulse 76 76 81 74 Resp 28 12 B/P (MAP) 105/62 (74) 120/76 (88) 135/98 (123) Pulse Ox 98 96 96 O2 Delivery Room Air Room Air Room Air 08/04/20 08/04/20 08/04/20 08/04/20 04:00 04:09 05:00 06:00 Temp 36.0 Pulse 80 75 76 Resp 12 19 35 B/P (MAP) 130/86 (94) 147/96 (111) 138/88 (105) Pulse Ox 96 98 99 O2 Delivery Room Air Room Air Room Air 08/04/20 08/04/20 08:00 08:00 Temp 36.4 O2 Delivery Room Air 08/04/20 00:00 Intake Total 1440 ml Output Total 1800 ml Balance -360 ml Side: right Groin site without hematoma: Yes Condition: DP/PT pulses palpable Bruising: mild bruising Constitutional: AAO x 3, well-developed, well-nourished Respiratory: No accessory muscle use; other (good bilat air entry) Cardiovascular: regular rate-rhythm, S1 and S2, systolic murmur (soft DORIAN at card base) Gastrointestional: No tender; soft; No guarding, No rebound; audible bowel farhan nds Extremities: No clubbing, No cyanosis, No significant edema Neurologic/Psychiatric: oriented x 3, other (moves all limbs equally) Skin: No rash on exposed areas, No ulcerations on exposed areas Results/Procedures: Labs Laboratory Tests 08/03/20 12:26: Glucometer 306H 08/03/20 15:24: Glucometer 327H 08/03/20 20:04: Glucometer 305H 08/04/20 03:50: White Blood Count 9.9, Red Blood Count 5.21, Hemoglobin 14.2, Hematocrit 42, Mean Corpuscular Volume 80, Mean Corpuscular Hemoglobin 27, Mean Corpuscular Hemoglobin Concent 34, Red Cell Distribution Width 12.6, Platelet Count 251, Mean Platelet Volume 11.5, Immature Granulocyte % (Auto) 0, Neutrophils (%) (Auto) 64, Lymphocytes (%) (Auto) 26, Monocytes (%) (Auto) 8, Eosinophils (%) (Auto) 1, Basophils (%) (Auto) 1, Neutrophils # (Auto) 6.3, Lymphocytes # (Auto) 2.6, Monocytes # (Auto) 0.8, Eosinophils # (Auto) 0.1, Basophils # (Auto) 0.1, Immature Granulocyte # (Auto) 0.0, Sodium Level 133L, Potassium Level 3.7, Chloride Level 101, Carbon Dioxide Level 23, Anion Gap 9, Blood Urea Nitrogen 10, Creatinine 0.73, Estimat Glomerular Filtration Rate > 60, BUN/Creatinine Ratio 14, Glucose Level 296H, Calcium Level 8.5, Phosphorus Level 3.2, Magnesium Level 2.0 Laboratory Tests 08/03/20 03:55 08/04/20 03:50 A/P: Assessment: Ac NSTEMI CAD - The culprit lesion causing the patient's non-ST elevation myocardial infarction was a complete occlusion of the proximal portion of the first obtuse marginal. This was successfully treated, and following stenting with Trena Xience 2.25 x 15 mm, there was no significant residual stenosis and there was normal antegrade flow. The left anterior descending has 60% stenosis in its proximal portion and 60% stenosis in the mid portion that involves the origin of the first diagonal. The distal left circumflex has up to 50% stenosis. The right coronary artery is dominant and its posterior descending branch is occluded in its mid to distal portion and there is collateralization of the distal segment of the posterior descending from the left coronary system. Normal global left ventricular systolic function with an ejection fraction of approximately 60%. Normal left ventricular end- diastolic pressure. Per cardiac cath of 08-03-2020 Uncontrolled DM II Hypertension H/o hyperlipidemia Chews tobacco Obesity with BMI approx 55 Plan: * Post cardiac cath with successful intervention * OK to discharge home today * Continue ASA, Plavix, statin and BB * Discussed case with Dr. Pope * Advised to quit tobacco use * Reports concerns with affording medications * Social service consult Clinical Quality Measures AMI/AHF: ASA po Prior to arrival: Yes JOHANNY ARMENTA Aug 04, 2020 09:35
--- NOTE | 2020-08-04 09:45 | NUR ---
smoking cessation orders rec'd. rapport established with patient. motivational interviewing reveals patient is not a smoker, but does chew tobacco. [facility] tobacco cessation helpline and [facility] education class information shared with patient, along with stress reduction and coping techniques worksheet. Patient mentions slight interest only in quitting tobacco at this time. Support and encouragement offered.
--- NOTE | 2020-08-04 10:37 | Discharge Inst-Simple/Standard ---
Discharge Inst-Standard Patient Instructions/Follow Up Plan of Care/Instructions/FU: Please continue to take your medications as written. Please follow up with your primary care doctor to follow up this hospital stay and with Dr Whitley as scheduled. Activity as Tolerated: Yes Discharge Diet: ADA Diet, Cardiac Diet Return to The Hospital For: Chest pain, shortness of breath, bleeding or swelling at incision site, very high blood sugars, if you feel you are getting worse. Planned Outpatient Orders/Ref. Pneu Vac Indicated: Yes RAAD PÉREZ MD Aug 04, 2020 10:37
--- NOTE | 2020-08-04 13:03 | NUR ---
SS WORKING ON OBTAINING PT'S MEDS AND ENSURING PT IS ABLE TO AFFORD THEM, PT GETTING TIRED OF WAITING ON MEDS AND REPORTS HES ABOUT TO "WALK OUT." PT EDUCATION PROVIDED, UNSUCCESSFUL.
--- NOTE | 2020-08-04 13:44 | Progress Note - Cardiology ---
Cardiology SOAP Progress Note Subjective: No cp or palp or syncope No groin discomfort or leg discomfort/discoloration No shortness of breath No n/v Insists on going home Objective: I&O/Vital Signs 08/04/20 08/04/20 08/04/20 08/04/20 02:00 03:00 04:00 04:09 Temp 36.0 Pulse 81 74 80 Resp 28 12 12 B/P (MAP) 120/76 (88) 135/98 (123) 130/86 (94) Pulse Ox 96 96 96 O2 Delivery Room Air Room Air Room Air 08/04/20 08/04/20 08/04/20 08/04/20 05:00 06:00 06:58 08:00 Pulse 75 76 77 Resp 19 35 B/P (MAP) 147/96 (111) 138/88 (105) Pulse Ox 98 99 O2 Delivery Room Air Room Air Room Air 08/04/20 08/04/20 08:00 12:33 Temp 36.4 35.9 08/04/20 00:00 Intake Total 1440 ml Output Total 1800 ml Balance -360 ml Side: right Groin site without hematoma: Yes Condition: DP/PT pulses palpable Bruising: mild bruising Constitutional: AAO x 3, well-developed, well-nourished Respiratory: No accessory muscle use; other (good bilat air entry) Cardiovascular: regular rate-rhythm, S1 and S2, systolic murmur (soft DORIAN at card base) Gastrointestional: No tender; soft; No guarding, No rebound; audible bowel s ounds Extremities: No clubbing, No cyanosis, No significant edema Neurologic/Psychiatric: oriented x 3, other (moves all limbs equally) Skin: No rash on exposed areas, No ulcerations on exposed areas Results/Procedures: Labs Laboratory Tests 08/03/20 15:24: Glucometer 327H 08/03/20 20:04: Glucometer 305H 08/04/20 03:50: White Blood Count 9.9, Red Blood Count 5.21, Hemoglobin 14.2, Hematocrit 42, Mean Corpuscular Volume 80, Mean Corpuscular Hemoglobin 27, Mean Corpuscular Hemoglobin Concent 34, Red Cell Distribution Width 12.6, Platelet Count 251, Mean Platelet Volume 11.5, Immature Granulocyte % (Auto) 0, Neutrophils (%) (Auto) 64, Lymphocytes (%) (Auto) 26, Monocytes (%) (Auto) 8, Eosinophils (%) (Auto) 1, Basophils (%) (Auto) 1, Neutrophils # (Auto) 6.3, Lymphocytes # (Auto) 2.6, Monocytes # (Auto) 0.8, Eosinophils # (Auto) 0.1, Basophils # (Auto) 0.1, Immature Granulocyte # (Auto) 0.0, Sodium Level 133L, Potassium Level 3.7, Chloride Level 101, Carbon Dioxide Level 23, Anion Gap 9, Blood Urea Nitrogen 10, Creatinine 0.73, Estimat Glomerular Filtration Rate > 60, BUN/Creatinine Ratio 14, Glucose Level 296H, Calcium Level 8.5, Phosphorus Level 3.2, Magnesium Level 2.0 08/04/20 11:56: Glucometer 261H A/P: Assessment: Ac NSTEMI CAD - Cath of 08-03-20: The culprit lesion causing the patient's non-ST elevation myocardial infarction was a complete occlusion of the proximal portion of the first obtuse marginal. This was successfully treated, and following stenting with Trena Xience 2.25 x 15 mm, there was no significant residual stenosis and there was normal antegrade flow. The left anterior descending has 60% stenosis in its proximal portion and 60% stenosis in the mid portion that involves the origin of the first diagonal. The distal left circumflex has up to 50% stenosis. The right coronary artery is dominant and i ts posterior descending branch is occluded in its mid to distal portion and there is collateralization of the distal segment of the posterior descending from the left coronary system. Normal global left ventricular systolic function with an ejection fraction of approximately 60%. Normal left ventricular end- diastolic pressure Uncontrolled DM II, managed by Dr Pope Hypertension H/o hyperlipidemia Chews tobacco Obesity with BMI approx 55 Plan: * Continue ASA, Plavix, statin and BB * Discussed case with Dr. Pope * Advised to quit tobacco use * Reports concerns with affording medications * Social service consult * I had a long and detailed discussion with him. I explained to him his CV issues and the interventions undertaken. I stressed the importance of medication compliance, especially complete compliance with dual antiplatelet therapy. He understands that if he is noncompliant, his stent may shut down with clot and this can cause major morbidity and may even cause mortality. He says he will comply Clinical Quality Measures AMI/AHF: ASA po Prior to arrival: Yes CHANDNI MCCLURE MD FACP FAC CCDS Aug 04, 2020 13:44
--- NOTE | 2020-08-04 13:55 | NUR ---
SHELBY/RAE visited with patient for social service consult. SHELBY/RAE visited with patient in early a.m. to discuss cost of medications through [facility] and additional resources. The patient was sitting up in chair at time of visit and agreeable to discuss discharge planning. Plan: The patient will discharge today 08/04 to home self care. The patient is driving himself home. Medications: The patient is being prescribed new medications. SHELBY/RAE was informed by the physician that the patient would need assistance with the cost of these medications. The patient's preferred pharmacy is [facility] in [place]. SHELBY/RAE contacted the pharmacy to check on total cost. The total cost for the medications are $85.91. SOFIYA received a call from the patient's primary care nurse informing this sw that he verbalized he cannot afford his Plavix until next week. SHELBY/RAE came back up to visit with the patient again to discuss options. The Edge Trimmer Mechanic Nurse Practitioner was visiting with him and provided the patient with 4 days worth of Brilinta and provided education/instructions. She also provided the patient with samples of Aspirin. SHELBY/RAE visited with the patient and informed him the cost of the Plavix is $15 through [facility]; however, this sw could have it sent to [facility] and paid for through the Pals program. The patient declined and stated he would like it sent to [facility] and he would be able to afford 15 dollars. He assured this sw he would pick it up tomorrow morning. SHELBY/SS provided education on the importance of having the Plavix and not waiting to pick it up. He verbalized understanding. CM/SS verified with the patient that he did not want assistance. Patient refused for this sw to send script to [facility]. 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 CM/SS attempted to assist with remaining medications. The patient refused. SHELBY/RAE informed the primary Nurse, Physician, and Nurse Practitioner. Home: The patient lives at home with his mother and brother. 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 Insurance: None and it is not offered through employment. SHELBY/RAE discussed the option of the [employer] through [employer]. He verbalized understanding. Assistance: The patient was given the financial application through the hospital. CM/SS educated the patient on the importance of filling the application out and turning it in to help with inpatient cost. He verbalized understanding. CHC: SHELBY/SS talked at length with the patient the services and benefits of getting established with [facility]. The patient was informed about the pharmacy benefits and office visits($5 dollar medications, financial assistance, charging medications, sliding fee scale). He verbalized understanding. No further needs at this time.
--- NOTE | 2020-08-04 14:04 | NUR ---
SKYLER CASTAÑEDA demonstrates understanding of discharge instructions and accurately returns instructions upon questioning. Copy of Post-Discharge Instructions and Medication Discharge Instructions given to PT. SKYLER CASTAÑEDA is able to manage continuing needs after discharge. Patients belongings returned to PT. Skin dry and intact; no breakdown noted. Patient discharged from [facility] on 08/04/20 at 1404. SKYLER CASTAÑEDA left floor via WC, accompanied by STAFF.
--- NOTE | 2020-08-04 14:39 | NUR ---
"RD ASSESSMENT PMHx: DM (hx of poor compliance); HTN; gout; PT INTERACTION: Pt was awake and semi-pleasant during nutrition assessment. Pt states current appetite is alright. Note pt currnetly on CHO 60g/m 3snack diet, and avg PO intake 100% x3meal, per chart review. Pt states following a regular diet at home, and has no issues with chewing/swallowing food. Pt states no recent issues with nausea, vomiting, constipation, or diarrhea, and that his last BM was 08/03. Note pt not currently on bowel regimen per chart review. Pt states some recent wt loss, but was unsure of amount/timeframe. Note unable to determine recent wt hx, per chart review. Pt states current DM management is not good. Note recent HbA1c of 13.2 (08/03/2020), per chart review. Note pt has has a hx of poor DM compliance, per chart review. ABNORMAL NUTRITION-RELATED LAB VALUES LOW: Na 133; HIGH: glu 296; Est. kcal needs: 8091-9300 kcal | 25-30 kcal/kg IBW, based on IBW of 80.9 kg (178#) Est. Pro needs: 65-81 g Pro | 0.8-1.0 g Pro/kg IBW PES STATEMENT: Food- and nutrition-related knowledge deficit (NB-1.1) related to unwilling/disinterested in applying information as evidenced by chart revie, and pt interview. INTERVENTION: Continue with current diet order of CHO 60g/m 3snack diet. Offered diet education on DM management, but pt declined. May attempt to offer again prior to discharge. Will continue to follow and reassess as pt needs, intake, and status change. Chidi LEO, MS RD LD [phone] cell"
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
[2020-08-04] MEDS ORDERED: ENOXAPARIN 40 MG/0.4 ML (LOVENOX) SYR SC SCH (21:00)
== END 2020-08-04 14:04 | disposition home or self-care (01) | DRG 247 ==
LOC: EDUNIT# 03:47 → ER 03:49 → ICU 05:06
PROVIDERS: ADMIT Internal Medicine; ATTEND Internal Medicine Cardiovascular Disease
PROC: 027034Z Dilation of Coronary Artery, One Artery with Drug-eluting Intraluminal Device, Percutaneous Approach (ICD-10-PCS; principal; 2020-08-03)
PROC: 4A023N7 Measurement of Cardiac Sampling and Pressure, Left Heart, Percutaneous Approach (ICD-10-PCS; 2020-08-03)
PROC: B2111ZZ Fluoroscopy of Multiple Coronary Arteries using Low Osmolar Contrast (ICD-10-PCS; 2020-08-03)
PROC: B2151ZZ Fluoroscopy of Left Heart using Low Osmolar Contrast (ICD-10-PCS; 2020-08-03)
DX: I21.4 Non-ST elevation (NSTEMI) myocardial infarction (principal); Z68.43 Body mass index [BMI] 50.0-59.9, adult; E11.65 Type 2 diabetes mellitus with hyperglycemia; I10 Essential (primary) hypertension; E66.01 Morbid (severe) obesity due to excess calories; E78.5 Hyperlipidemia, unspecified; M10.9 Gout, unspecified; M19.91 Primary osteoarthritis, unspecified site; F17.220 Nicotine dependence, chewing tobacco, uncomplicated; Z79.4 Long term (current) use of insulin
CPT/HCPCS: 36415; 71045; 80048; 82550; 82553; 82962; 83036; 83735; 84100; 84484; 85025; 85730; 93005; 93458